=== PATIENT | male | born 1960 | race Caucasian/White ===

== ENCOUNTER → 2016-09-24 | Outpatient (CLI) | payer BC ==
[~2016-09-24] MED LIST: ASPIRIN EC81 MG PO; FISH OIL1000 MG PO; GLUCOPHAGE1000 MG PO; INVOKANA300 MG PO; LIPITOR10 MG PO; PRINIVIL (ZESTRI5 MG PO
--- NOTE | ~2016-09-24 | ECHO ---
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 METs:11.80. DP:28 K. Achieved:96% MPHR. No chest pain. Reason for termination:Fatigue and SOB. Positive for ischemia. PVCs,couplets.One triplet in stage 4. DTS:5 (Low risk). Recommendation Consider CT cor angiography given low risk and symptoms. Procedure Type of Study Stress procedure:Exercise. Procedure Date Date: 09/24/2016 Start: 01:00 PM Indications:Back pain with exertion. Risk Factors - The patient's risk factor(s) include: orally-treated diabetes mellitus, controlled dyslipidemia and treated arterial hypertension. Rest ECG RSR. Pre-Stress Physical Exam Normal heart sounds. Lungs:clear. Stress Stress Type: Exercise Peak HR: 162 bpm HR Response: Normal Peak BP: 192/80 mmHg BP Response: Normal Predicted HR: 166 bpm HR BP Product: 31190 % of predicted HR: 98 Max Exercise: 11.8 METS Test Duration: 10:05 min Reason for Termination: Fatigue Perceived Exertion: 8 Results ECG STsegment changes suggestive of ischemia.[address] depression in leads 2,avf,V3 and V4. Arrhythmias PVC,couplet and triplet @ stage 4. Symptoms Fatigue and SOB. Signature dtt: Cherrie Barragan dtd: 09/24/16 [facility] Phys[facility] Self Edit
== END | disposition disaster alternative care site (69) ==
LOC: GCAR 09-18 15:00
DX: R07.9 Chest pain, unspecified (principal); M89.8X1 Other specified disorders of bone, shoulder; E11.9 Type 2 diabetes mellitus without complications; Z82.49 Family history of ischemic heart disease and other diseases of the circulatory system